=== PATIENT | male | born 1955 | race Caucasian/White ===

== ENCOUNTER → 2017-03-21 | Outpatient (CLI) | payer BC ==
[~2017-03-21] MED LIST: ALPOPS1510; ASPEC81 PO; BIMA0.038; CLOP1TAB15 PO; METO50TA16 PO; NXM/40 PO; SIMV40TA2 PO
== END | disposition home or self-care (01) ==
LOC: C.LAB 11:16
PROVIDERS: ATTEND Family Medicine
DX: C61 Malignant neoplasm of prostate (principal)

== ENCOUNTER → 2017-04-12 | Outpatient (CLI) | payer BC ==
--- NOTE | 2017-04-12 17:52 | DIAGNOSTIC IMAGING REPORT ---
RIGHT ANKLE MIN 3 VIEWS ROUTINE HISTORY: 62 years-old Male SPRAIN OF R ANKLE Right COMPARISON: None available TECHNIQUE: 3 views of the right ankle FINDINGS: Corticated ossifications adjacent to the distal fibula are seen, largest of which measures 7 x 8 mm. There is prominent spurring of the calcaneus. Note is made of an os trigonum. There is mild spurring of the dorsal midfoot. No acute fracture or dislocation is identified. Small ankle joint effusion. There is moderate lateral soft tissue swelling about the ankle. No osteochondral defect. Ankle mortise is well maintained and anatomically positioned. IMPRESSION: 1. Moderate lateral ankle soft tissue swelling with small ankle joint effusion. No acute fracture or dislocation. 2. Corticated ossifications adjacent to the distal fibula suggest sequela of remote avulsion fractures or accessory ossicles. 3. Prominent enthesopathy about the calcaneus. The above report was generated using voice recognition software. It may contain grammatical, syntax or spelling errors. Electronically signed by: Erik Sun M.D. 04/12/2017 5:50 PM Dictated Date/Time: 04/12/2017 5:47 PM
== END | disposition home or self-care (01) ==
LOC: C.RAD 17:24
PROVIDERS: ATTEND Nurse Practitioner
DX: S93.401A Sprain of unspecified ligament of right ankle, initial encounter (principal); X58.XXXA Exposure to other specified factors, initial encounter; M79.89 Other specified soft tissue disorders; M77.31 Calcaneal spur, right foot